=== PATIENT | male | born 1970 | race Caucasian/White ===

== ENCOUNTER 2016-12-15 13:56 | Emergency (ER) | payer OTHER ==
[~2016-12-15 13:56] MED LIST: CLARITHROMYCIN500 MG PO; CLINDAMYCIN HC300 MG PO; CYCLOBENZAPRINE10 MG PO; CYCLOBENZAPRINE5 MG PO; FLONASE2 SPRAY; HYDROCHLOROTH12.5 MG PO; HYDROCHLOROTHIA25 MG PO; IBUPROFEN600 MG PO; LIDOCAINE700 MG TOP; LISINOPRIL-HCT1 EAC2 PO; LISINOPRIL10 MG PO; MEDROL4 M1 PO; MELOXICAM15 MG PO; METOPROLOL TART25 MG PO; MONTELUKAST SOD10 MG PO; NEURONTIN100 MG PO; NIACIN500 M1 PO; NORCO 5-325 TA1 EACH PO; NORCO 7.5-3251 EACH PO; PREDNISONE10 MG PO; PRILOSEC20 MG PO; ROBAXIN-750750 MG PO; ULTRAM50 MG PO; WELLBUTRIN SR100 MG PO; WELLBUTRIN XL150 MG PO; ZITHROMAX250 MG PO; ZYRTEC10 MG PO
== END 2016-12-15 18:36 | disposition home or self-care (01) ==
LOC: ED 13:56
DX: E86.0 Dehydration (principal); R53.83 Other fatigue; I10 Essential (primary) hypertension; F17.200 Nicotine dependence, unspecified, uncomplicated; Z90.49 Acquired absence of other specified parts of digestive tract; Z88.0 Allergy status to penicillin; Z88.8 Allergy status to other drugs, medicaments and biological substances; Z79.899 Other long term (current) drug therapy
CPT/HCPCS: 80053; 85025; 96360; 99284; J7030